=== PATIENT | male | born 1965 | race Asian ===

== ENCOUNTER 2018-05-21 09:45 | Emergency (ER) | payer OTHER ==
[2018-05-21 10:03] VITALS: BP 126/77; PULSE 68; TEMP 97.8; BMI 26.6
--- NOTE | 2018-05-21 10:22 | PDOC ---
History of Present Illness - General Chief Complaint: Injury Stated Complaint: LEFT ANKLE PAIN Time Seen by Provider: 05/21/18 09:54 History Source: Patient Exam Limitations: No Limitations - History of Present Illness Initial Comments: 53 yo M with a hx of multiple ankle sprains as a child and bursitis presents to the [facility] at 10 AM after twisting his ankle at 4 AM. He was running down the stairs in the middle of the night because a pipe blew in the house. As he was running down the stairs he tripped, hyper - inverted and rolled his ankle. He then applied iced corn to his ankle and then went back to sleep. When he woke up this morning he came to the ER because he was still in a significant amount of pain and wanted to make sure nothing was broken. He was able to ambulate on the ankle and foot both last night after the injury occurred, this morning after waking up, and here in the ED. He admits it is painful to walk though. He says he has full sensation in the ankle and is not in pain at rest. 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 He states he does not believe he has sprained his ankle for the past 20 years. He also runs frequently and has a hx of bursitis. He denies any knee pain, hip pain, hand pain, or other joint pain. Denies recent fevers, chills, infections, history of joint disease, chest pain, SOB or difficulty breathing. PCP: Marek Norton PSH: None reported Allergies: NKA, NKDA Social Hx: Recreational drinking. Former smoker 20 + years ago. Denies other substance usage. Past History - Past Medical History Allergies/Adverse Reactions: Allergies Allergy/AdvReac Type Severity Reaction Status Date / Time No Known Allergies Allergy Verified 05/21/18 09:56 Home Medications: Ambulatory Orders Aspirin [Aspirin EC] 81 mg PO DAILY 05/21/18 Ibuprofen 600 mg PO ONCE 05/21/18 Multivitamin [One Daily] 1 each PO DAILY 05/21/18 COPD: No Other medical history: patient denies - Suicide/Smoking/Psychosocial Hx Smoking History: Never smoked Have you smoked in the past 12 months: No Information on smoking cessation initiated: No Hx Alcohol Use: No Review of Systems - Review of Systems Able to Perform ROS?: Yes Comments:: CONSTITUTIONAL: Absent: fever, no chills, no fatigue EYES: Absent: visual changes ENT: Absent: ear pain, no sore throat CARDIOVASCULAR: Absent: chest pain, no palpitations RESPIRATORY: Absent: cough, no SOB GI: Absent: abdominal pain, no nausea, no vomiting, no constipation, no diarrhea GENITOURINARY: Absent: dysuria, no frequency, no hematuria MUSKULOSKELETAL: Present: Arthralgia Absent: back pain, no arthralgia, no myalgia SKIN: Absent: rash NEURO: Absent: headache *Physical Exam - Vital Signs Last Vital Signs Temp Pulse Resp BP Pulse Ox 97.8 F 68 18 126/77 98 05/21/18 09:45 05/21/18 09:45 05/21/18 09:45 05/21/18 09:45 05/21/18 09:45 - Physical Exam Comments: GENERAL: Well-appearing, well-nourished. No apparent distress. HEENT: Normocephalic, atraumatic. PERRL, EOM intact. CARDIOVASCULAR: Normal S1, S2. Regular rate and rhythm. PULMONARY: Clear to auscultation bilaterally. ABDOMEN: Soft, non-distended, non-tender. LEFT ANKLE: There is bruising on the dorsal aspect of the foot. 2+ pulses in ankle. No TTP in the posterior edge of the medial or lateral malleolus. No pain at the base of the 5th metatarsal bone. No navicular pain. Patient is able to ambulate on the ankle with discomfort. There is TTP along the dorsal aspect of the foot on the extensor sheath. EXTREMITIES: Normal ROM in other 3 extremities. No gross deformities. SKIN: Warm, dry. No rash NEUROLOGICAL: No focal neurological deficits. Moderate Sedation - Procedure Monitoring Vital Signs: Procedure Monitoring Vital Signs Temperature 97.8 F 05/21/18 09:45 Pulse Rate 68 05/21/18 09:45 Respiratory Rate 18 05/21/18 09:45 Blood Pressure 126/77 05/21/18 09:45 O2 Sat by Pulse Oximetry (%) 98 05/21/18 09:45 Medical Decision Making - Medical Decision Making 53 yo M with a hx of multiple ankle sprains as a child and bursitis presents to the [facility] ER at 10 AM after twisting his ankle at 4 AM. DDx IBNLT: Ankle fracture, ankle dislocation, foot fx, tendon injury, ligament injury, septic arthritis Plan: Ankle/foot x-ray, analgesia, RICE, crutches, javier bandage, DC w fu. X-ray showed no acute bony pathology. No fractures or dislocations. Placed ankle in an jvaier bandage and gave return precautions. *DC/Admit/Observation/Transfer Diagnosis at time of Disposition: Foot injury - Discharge Dispostion Disposition: HOME Condition at time of disposition: Stable Decision to Admit order: No - Referrals Referrals: Marek Norton [Primary Care Provider] - - Patient Instructions Printed Discharge Instructions: DI for Ankle Fracture, DI for Ankle Sprain, How To Perform RICE (Rest, Ice, Compress, Elevate) Additional Instructions: You came into the ER after you twisted your ankle and hurt your foot. We did an X-ray which showed no broken bones. We rapped your ankle in an javier bandage. Make sure to RICE your ankle - See attached handout for further explanation. Try not to put any pressure on your ankle for the next 7 to 10 days for best healing. Make sure to start doing physical therapy on your ankle when you start walking for at least 2 to 4 weeks. Come back to the ER if your pain worsens, you get a fever, or have any other new or worsening concerns. Thank you for coming to the [facility]. We hope you feel better soon! Print Language: NEPALI - Post Discharge Activity
== END 2018-05-21 11:20 | disposition home or self-care (01) ==
LOC: FER 09:45
DX: S99.912A Unspecified injury of left ankle, initial encounter (principal); X50.0XXA Overexertion from strenuous movement or load, initial encounter; Y93.89 Activity, other specified; Y92.008 Other place in unspecified non-institutional (private) residence as the place of occurrence of the external cause
CPT/HCPCS: 73610-TC-LT-FY; 73630-TC-LT; 99284-25

== ENCOUNTER 2022-08-15 04:35 | Day surgery (SDC) | payer OTHER ==
[2022-08-14 16:19] VITALS: BMI 27.0
[2022-08-15 12:57] VITALS: TEMP 97.7
[2022-08-15 13:41] VITALS: BP 119/85; PULSE 65; RESP 19
== END 2022-08-15 13:55 | disposition home or self-care (01) ==
LOC: JASU-ENDO 04:35
PROVIDERS: ATTEND Internal Medicine Gastroenterology
PROC: 0DB78ZX Excision of Stomach, Pylorus, Via Natural or Artificial Opening Endoscopic, Diagnostic (ICD-10-PCS; 2022-08-15)
PROC: 0DB68ZX Excision of Stomach, Via Natural or Artificial Opening Endoscopic, Diagnostic (ICD-10-PCS; 2022-08-15)
PROC: 0DB28ZX Excision of Middle Esophagus, Via Natural or Artificial Opening Endoscopic, Diagnostic (ICD-10-PCS; 2022-08-15)
PROC: 0DB38ZX Excision of Lower Esophagus, Via Natural or Artificial Opening Endoscopic, Diagnostic (ICD-10-PCS; 2022-08-15)
PROC: 0DB98ZX Excision of Duodenum, Via Natural or Artificial Opening Endoscopic, Diagnostic (ICD-10-PCS; principal; 2022-08-15 12:15)
DX: K21.00 Gastro-esophageal reflux disease with esophagitis, without bleeding (principal); K29.50 Unspecified chronic gastritis without bleeding; K31.7 Polyp of stomach and duodenum
CPT/HCPCS: 88305-TC; 88342-TC